=== PATIENT | female | born 1955 | race Caucasian/White ===

== ENCOUNTER 2023-03-20 09:11 | Outpatient (OUT) | payer MEDICARE, OTHER, SELFPAY ==
--- NOTE | 2023-03-20 07:45 | NM_ITS ---
Patient Name: AMANDA MAGALLANES MR#: [id number] : 1955 Exam Date: 03/20/2023 Ordering Doctor: DR OBED LENZ RADIOLOGY REPORT PROCEDURE: NM DAVID PERF SPECT REST STR COMPARISON: None. INDICATIONS: PRE PROCEDURE CARDIOVASCULAR EXAM, ABNORMAL EKG TECHNIQUE: Exam Description: Stress/Rest one day protocol gated SPECT Rest Imagin.8 mCi Tc-99m Cardiolite IV on 03/20/2023 Stress Imaging 29.4 mCi Tc-99m Cardiolite IV on 03/20/2023 Exercise Protocol: 0.4 mg Lexiscan given IV Heart Rate (bpm): Rest: 70 Max: 116 PMHR: 75 Blood Pressure: Rest: 128/82 Max: 140/80 Symptoms: Rest and peak stress ECG findings were normal and the exercise portion of the study was normal per attending physician Dr. Barraza . For more details please see separate cardiac stress test report. FINDINGS: QUALITY OF STUDY: Good. PERFUSION DEFECT: None. LOCATION: N/A SIZE: N/A. SEVERITY: N/A. TYPE: N/A. WALL MOTION: Normal. LV SIZE: Normal. 60 mL. TID / TCD: None; 0.8 LVEF: Normal. Calculated EF 75%. SUMMARY: Myocardial perfusion imaging study is NORMAL. CONCLUSION: 1. No reversible ischemia 2. Normal exercise test Dictated by: Robert Peoples MD on 03/21/2023 at 15:42 Approved by: Robert Peoples MD on 03/21/2023 at 15:43
[2023-03-20] MEDS: REGADENOSON 0.4 MG/5 ML SYRINGE IV (09:59)
--- NOTE | 2023-03-20 12:29 | P.STRESS_ITS ---
Stress Test Stress Test Requesting physician: OBED MURO Procedure: Lexiscan Cardiolite stress test General Information: Reason for Stress Test: EKG changes Cardiac History and Risk Factors: No personal history. Father had [place], CHF Resting 12 - Lead Electrocardiogram: Rate & rhythm: Normal sinus at a rate of 70. [place]: Normal T-waves: Inverted in aVL ST-segments: Normal There is no copy of the aforementioned abnormal EKG for review & comparison. Stress Test: Protocol: Lexiscan protocol was initiated with injection of 0.4mg Lexiscan IV push followed by Cardiolite. Blood pressure: Initial: 128/82, Maximum: 140/80 Rate & rhythm: Patient remained in sinus rhythm during the exercise and recovery portions of the study.? The maximum heart rate was 116, which was 75% of the maximum predicted heart rate 153. ST-segments & T-waves: There were no T-wave changes and no ST-segment changes when compared to the baseline EKG. Patient response/symptoms: There were no symptoms similar to the chief complain t. Interpretation: Normal Lexiscan stress test. No reproducible symptoms. Cardiolite imaging interpretation will be reported separately. Clinical correlation required.?
== END 2023-03-20 09:12 | disposition home or self-care (01) ==
PROVIDERS: PCP Physician Assistant; Visit Provider Physician Assistant
DX: Z01.818 Encounter for other preprocedural examination (principal); R94.31 Abnormal electrocardiogram [ECG] [EKG]
CPT/HCPCS: 78452; 93017; A9500; J2785